=== PATIENT | male | born 1965 | race Caucasian/White ===

== ENCOUNTER → 2020-11-14 10:00 | Outpatient (CLI) | payer BC, SELFPAY ==
[2020-11-14 11:51] LABS: COVID19 -Nasal RAPID Negative (Negative)
== END ==
PROVIDERS: Visit Provider Student in an Organized Health Care Education/Training Program
DX: Z20.822 Contact with and (suspected) exposure to COVID-19 (principal)
CPT/HCPCS: 87635

== ENCOUNTER 2020-11-16 08:45 | Day surgery (SDC) | payer BC, SELFPAY ==
[2020-11-16] VITALS (11 sets, daily range): BP systolic 121–173; BP diastolic 64–104; PULSE 66–86; RESP 10–16; TEMP 36.1–36.7; O2SAT 96–99; BMI 34.4
[2020-11-16] MEDS: LACTATED RINGERS 1,000 ML 42 ML IV (09:25)
--- NOTE | 2020-11-16 09:44 | PM.PREOP ---
Pre-operative Note COVID-19 COVID-19 status: Negative Interval Note History & Physical reviewed/Exam performed by Physician: Yes Changes to H&P: No
[2020-11-16] MEDS: CLINDAMYCIN 900 MG/50 ML PIGGYBACK 50 MG IV (10:00)
--- NOTE | 2020-11-16 10:03 | SUR.PREOP ---
Block start time [0947] . Monitoring initiated and maintained throughout procedure. Oxygen and medications given per anesthesiologist instructions. Patient remained stable throughout procedure, no adverse reactions noted. Block end time [9352].
--- NOTE | 2020-11-16 10:23 | SUR.OPER ---
Supine on padded OR bed, head on pillow, arms secured on padded arm boards at <90 degrees abduction, legs uncrossed, safety belt at abdomen, right leg prepped and draped in sterile field, bump under right hip, tape over blanket over lower legs.
[2020-11-16] MEDS: HYDROMORPHONE 2 MG INJ IV ×2 (11:28→11:37)
[2020-11-16] MEDS: hydrOXYzine 50 MG/ML INJ 25 MG IM (11:30)
[2020-11-16] MEDS: OXYCODONE IR 5 MG TABLET PO ×2 (11:53→13:22)
--- NOTE | 2020-11-16 12:02 | P.OP_ITS ---
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 Payne is a 55-year-old male with right foot pain for greater than 2 months on the bottom of his foot near his lateral side at the level of the peroneal os. He is limping and endorse the changes. He has failed conservative treatment. MRI indicates peroneus longus rupture at the same level. He has been indicated for excision of the os and peroneus longus to brevis transfer. The risks and benefits of the procedure have been discussed with the patient even opportunity to ask questions. The risks of surgery include but are not limited to infection, malunion, nonunion, persistence of pain, damage to nerves and blood vessels, posttraumatic arthritis, DVT, PE, cardiopulmonary complications and . The patient expressed a thorough understanding of the risks and benefits of surgery and has elected to proceed. Consent was signed in the office today. Surgeon: Myrna Dominguez Click Yes if Unassisted: Yes Anesthesia Type: General and Peripheral nerve block Operative Notes Findings: Rupture peroneus longus tendon at the level of the peroneal os. Closure Type: primary Specimen(s): none sent Estimated Blood Loss (mL): 5 Blood products transfused: none Tourniquet time (min): 45 Procedure in detail: The patient was seen in the preoperative area the site of surgery marked informed consent confirmed. He was brought back to the operating room by the anesthesia team. A nerve block was placed by the anesthesia team for postoperative pain control. He was positioned supine on operative table. Bony prominences well padded. General anesthetic was administered. A well- padded thigh tourniquet was placed on the right thigh. An SCD was placed on the contralateral lower extremity. Right lower extremities prepped and draped in standard sterile fashion. A formal time-out procedure was performed confirming the patient's side and site of surgery administration of appropriate preoperative antibiotic. All were in agreement. She was turned to the right foot 2 incision sites were marked out 1 centered over the peroneal os between the base of the 5th metatarsal and the calcaneal cuboid joint and in line with the path of the peroneal tendons and the 2nd above the peroneal groove and just behind the fibula over the peroneal tendon sheath. An Esmarch was used for exsanguination the tourniquet raised on the thigh to 250 mm of mercury. Incision was made at the distal incision down through the skin subcutaneous tissue at special care was taken to localize the sural nerve and retracted it throughout the procedure. The peroneal os was located at this level there was a rupture of the peroneus longus tendon with multiple tears as it was inserted into the os and and the ruptured at the distal edge. The os was resected and adhesions to the peroneus longus were released. The os resection was confirmed under mini C-arm fluoroscopy. At this point at the 2nd incision above the peroneal groove was made down through the skin and subcutaneous tissue. Peroneal tendon sheath was opened. The peroneus longus tendon was isolated and pulled up proximally through the proximal incision. The peroneus brevis tendon was then isolated and debrided of a small amount of tenosynovitis. Then a [id number] repair of the peroneus longus and brevis was completed to perform the transfer this was done with 2-0 FiberWire. Once this was completed the excess peroneus longus tendon was resected. The wounds were thoroughly irrigated. The peroneal tendon sheath was closed with 2 3-0 PDS suture. Distally subcutaneous tissues were closed with 3- 0 PDS. 4-0 Monocryl was used in the subcutaneous layer and 4-0 and 3-0 nylon in the skin. Tourniquet was released hemostasis was achieved prior to final closure. And dressings were placed with Xeroform gauze Webril and a stirrup splint in neutral position. The patient was woken from anesthesia and taken to recovery room in good condition. There no immediate complications from this procedure. All counts were correct Complications: none Post-operative Condition: stable Disposition: PACU Plan for aftercare: Nonweightbearing right lower extremity keep splint clean dry and intact. Follow-up in 2 weeks. Aspirin for DVT prophylaxis.
[2020-11-16] MEDS: ACETAMINOPHEN 325 MG TABLET 975 MG PO (13:22)
--- NOTE | 2020-11-16 14:51 | PM.PROC.1 ---
Procedures Date/Time Date of procedure: 11/16/20 Time of procedure: 09:50 Nerve Block Time out performed: Yes Local anesthetic used: other (5mL 2% Lidocaine, 15mL 0.5% Ropivacaine) Location of anesthetic used: lateral popliteal Amount of anesthesia used (mL): 20 Nerve blocks: other (sciatic nerve) Procedure successful: Yes Patient tolerated procedure: well Complications: none Additional comments: Ultrasound guided lateral popliteal sciatic nerve block for post operative pain management, as discussed with surgeon. Risks, benefits discussed with patient. Consent verified. Site marked by surgeon. Time out performed. Standard ASA monitors applied, NC O2, 2mg versed. Pt supine. Chloroprep. Sterile US sleeve and gel. Sciatic nerve identified proximal to popliteal fossa, at bifurcation. Lidocaine local skin wheal. 100mm x 21g Pajunk needle advanced with in-plane US guidance to nerve. Negative aspiration. 5mL 2% lidocaine and 15mL 0.5% ropivacaine injected with intermittent negative aspiration. Good LA spread noted on US. No pain, no paresthesias. VSS. Tolerated well.
--- NOTE | 2020-11-16 16:15 | SUR.PHASEII ---
Late entry: Assumed care of pt, pt still in pain, medicated with tylenol and oxycodone. Assisted pt to dress when ready to go, pain tolerable at discharge.
== END 2020-11-16 13:40 | disposition home or self-care (01) ==
PROVIDERS: PCP Physician Assistant Medical; Referring Provider Physician Assistant Medical; Visit Provider Orthopaedic Surgery Foot and Ankle Surgery
PROC: (CPT 27691; principal; 2020-11-16 10:45)
DX: S86.311A Strain of muscle(s) and tendon(s) of peroneal muscle group at lower leg level, right leg, initial encounter (principal); M76.71 Peroneal tendinitis, right leg; M77.51 Other enthesopathy of right foot and ankle; Y93.01 Activity, walking, marching and hiking; I10 Essential (primary) hypertension
CPT/HCPCS: 27690; 28122; J1100; J1170; J2250; J2405; J2704; J3010; J3410